=== PATIENT | male | born 1960 | race Caucasian/White ===

== ENCOUNTER → 2017-08-27 12:30 | Outpatient (CLI) | payer OTHER, MEDICAID, SELFPAY ==
[2017-08-27 13:11] LABS: Hemoglobin 13.4 g/dL (13.5-17.5); Mean Corpuscular HGB Conc 35.3 % (30-36); Mean Corpuscular Hemoglobin 35.8 PG (26-34); Mean Corpuscular Volume 101.4 fL (80-100); Platelet Count 214 X10^3/uL (150-400); Red Blood Cell Count 3.75 X10^6/uL (4.5-5.9); Red Cell Distribution Width 14.1 % (11.6-14.8); White Blood Cell Count 6.5 X10^3/uL (4.5-11.0)
[2017-08-27 13:43] LABS: Alanine Aminotransferase 111 IU/L (21-72); Albumin 4.5 g/dL (3.5-5.0); Albumin Globulin Ratio 1.2 (1.0-2.8); Alkaline Phosphatase 86 U/L (38-126); Aspartate Aminotransferase 159 IU/L (17-59); BUN Creatinine Ratio 11.4 (6-22); Bilirubin Total 0.8 mg/dL (0.2-1.3); Calcium 8.9 mg/dL (8.4-10.2); Cholesterol 265 mg/dL (140-199); Estimated Glomerular Filt Rate > 60.0 mL/min (>60); Globulin 3.7 g/dL (1.7-4.1); Glucose 90 mg/dL (70-100); HDL Cholesterol 84 mg/dL (40-60); HEMOLYSIS < 15 (0-50); LDL Cholesterol Calculated 150 mg/dL (<100); Potassium 3.8 mmol/L (3.4-5.1); Sodium 147 mmol/L (137-145); Total Protein 8.2 g/dL (6.3-8.2); Triglycerides 156 mg/dL (35-150)
[2017-08-27 14:10] LABS: Prostate Specific Antigen Scrn 0.847 ng/mL (0.1-4.0)
== END ==
PROVIDERS: PCP Internal Medicine; Visit Provider Internal Medicine
DX: I10 Essential (primary) hypertension (principal); E78.5 Hyperlipidemia, unspecified; Z00.00 Encounter for general adult medical examination without abnormal findings
CPT/HCPCS: 36415; 80053; 80061; 85027; G0103

== ENCOUNTER → 2017-08-30 10:27 | Outpatient (CLI) | payer OTHER, MEDICAID, SELFPAY ==
[2017-08-30 11:25] LABS: Reticulocyte Count, Percent 1.1 % (0.87-2.60)
[2017-08-30 12:08] LABS: Iron 55 ug/dL (49-181)
[2017-08-30 12:26] LABS: Total Iron Binding Capacity 340 ug/mL (261-462)
[2017-08-30 13:14] LABS: Vitamin B12 345 pg/mL (239-931)
[2017-08-30 13:15] LABS: Folate > 20.0 ng/mL (2.76-20.0)
[2017-08-30 19:02] LABS: Hep C Virus Ab w/Reflex Quant NEGATIVE s/c (NEGATIVE); Hepatitis B Surface Antigen NEGATIVE s/c (NEGATIVE)
[2017-09-08 11:24] LABS: Hepatitis B Core Antibody Nonreactive (Nonreactive)
== END ==
PROVIDERS: PCP Internal Medicine; Visit Provider Internal Medicine
DX: F10.20 Alcohol dependence, uncomplicated (principal); D64.9 Anemia, unspecified; K29.70 Gastritis, unspecified, without bleeding
CPT/HCPCS: 36415; 82607; 82728; 82746; 83540; 83550; 85045; 86704; 86803; 87340

== ENCOUNTER → 2017-09-28 10:45 | Outpatient (CLI) | payer OTHER, MEDICAID, SELFPAY ==
[2017-09-28 12:05] LABS: Alanine Aminotransferase 92 IU/L (21-72); Albumin 4.4 g/dL (3.5-5.0); Albumin Globulin Ratio 1.2 (1.0-2.8); Alkaline Phosphatase 68 U/L (38-126); Aspartate Aminotransferase 86 IU/L (17-59); BUN Creatinine Ratio 12.9 (6-22); Bilirubin Total 0.9 mg/dL (0.2-1.3); Blood Urea Nitrogen 9 mg/dL (9-20); Calcium 9.6 mg/dL (8.4-10.2); Carbon Dioxide 29 mmol/L (22-32); Chloride 101 mmol/L (98-107); Estimated Glomerular Filt Rate > 60.0 mL/min (>60); Globulin 3.7 g/dL (1.7-4.1); Glucose 103 mg/dL (70-100); HEMOLYSIS < 15 (0-50); Potassium 4.1 mmol/L (3.4-5.1); Sodium 142 mmol/L (137-145); Total Protein 8.1 g/dL (6.3-8.2)
== END ==
PROVIDERS: PCP Internal Medicine; Visit Provider Internal Medicine
DX: K29.70 Gastritis, unspecified, without bleeding (principal); R74.0 Nonspecific elevation of levels of transaminase and lactic acid dehydrogenase [LDH]
CPT/HCPCS: 36415; 80053

== ENCOUNTER → 2018-12-22 14:08 | Outpatient (CLI) | payer OTHER, MEDICAID, SELFPAY ==
[2018-12-22 14:51] LABS: Add Manual Diff / Slide Review NO; Basophils Absolute Auto 100 /uL (0-100); Basophils Percent Auto 1.3 % (0-2); Eosinophils Absolute Auto 100 /uL (0-450); Eosinophils Percent Auto 2.4 % (2-4); Hematocrit 41.3 % (41-53); Hemoglobin 14.3 g/dL (13.5-17.5); Lymphocytes Absolute Auto 1700 /uL (1100-4500); Mean Corpuscular HGB Conc 34.6 % (30-36); Mean Corpuscular Hemoglobin 34.5 PG (26-34); Mean Corpuscular Volume 99.7 fL (80-100); Monocytes Absolute Auto 700 /uL (0-900); Monocytes Percent Auto 12.5 % (3-14); Neutrophils Absolute Auto 2700 /uL (1500-7000); Neutrophils Percent Auto 51.8 % (50-75); Platelet Count 183 X10^3/uL (150-400); Red Blood Cell Count 4.14 X10^6/uL (4.5-5.9); Red Cell Distribution Width 13.7 % (11.6-14.8); White Blood Cell Count 5.3 X10^3/uL (4.5-11.0)
[2018-12-22 14:53] LABS: Reticulocyte Count, Percent 1.5 % (0.87-2.60)
[2018-12-22 15:49] LABS: Alanine Aminotransferase 99 IU/L (21-72); Albumin 4.8 g/dL (3.5-5.0); Albumin Globulin Ratio 1.3 (1.0-2.8); Alkaline Phosphatase 71 U/L (38-126); Aspartate Aminotransferase 144 IU/L (17-59); BUN Creatinine Ratio 18.6 (6-22); Bilirubin Total 0.9 mg/dL (0.2-1.3); Blood Urea Nitrogen 13 mg/dL (9-20); C-Reactive Protein Quant 0.5 mg/dL (<1.0); Calcium 10.4 mg/dL (8.4-10.2); Carbon Dioxide 28 mmol/L (22-32); Chloride 100 mmol/L (98-107); Cholesterol 279 mg/dL (140-199); Estimated Glomerular Filt Rate > 60.0 mL/min (>60); Globulin 3.6 g/dL (1.7-4.1); Glucose 103 mg/dL (70-100); HDL Cholesterol 68 mg/dL (40-60); HEMOLYSIS < 15 (0-50); LDL Cholesterol Calculated 180 mg/dL (<100); Lipase 104 U/L (23-300); Potassium 4.1 mmol/L (3.4-5.1); Sodium 142 mmol/L (137-145); Total Protein 8.4 g/dL (6.3-8.2); Triglycerides 154 mg/dL (35-150)
[2018-12-22 15:51] LABS: HEMOLYSIS < 15 (0-50); Iron 140 ug/dL (49-181)
[2018-12-22 16:01] LABS: Percent Iron Saturation 39 % (20-50); Total Iron Binding Capacity 360 ug/dL (261-462); Transferrin 315 mg/dL (206-381)
[2018-12-22 16:13] LABS: Vitamin D 25 Hydroxy (D3) 67.4 ng/mL (30.0-100.0)
[2018-12-22 16:50] LABS: Folate > 20.0 ng/mL (2.76-20.0)
[2018-12-27 19:09] LABS: Methylmalonic Acid 208 nmol/L (87-318)
== END ==
PROVIDERS: PCP Student in an Organized Health Care Education/Training Program; Visit Provider Student in an Organized Health Care Education/Training Program
DX: D64.9 Anemia, unspecified (principal); E55.9 Vitamin D deficiency, unspecified; E78.00 Pure hypercholesterolemia, unspecified; F10.20 Alcohol dependence, uncomplicated; R94.5 Abnormal results of liver function studies; G62.9 Polyneuropathy, unspecified
CPT/HCPCS: 36415; 80053; 80061; 82306; 82746; 83540; 83550; 83690; 83921; 85025; 85045; 86140

== ENCOUNTER → 2019-04-25 12:40 | Outpatient (CLI) | payer OTHER, MEDICAID, SELFPAY ==
[2019-04-25 14:29] LABS: Alanine Aminotransferase 30 IU/L (<50); Albumin 4.8 g/dL (3.5-5.0); Albumin Globulin Ratio 1.4 (1.0-2.8); Alkaline Phosphatase 52 U/L (38-126); Aspartate Aminotransferase 42 IU/L (17-59); Bilirubin Total 0.6 mg/dL (0.2-1.3); Bilirubin Unconjugated 0.5 mg/dL (0.0-1.1); Cholesterol 214 mg/dL (140-199); Globulin 3.5 g/dL (1.7-4.1); HDL Cholesterol 43 mg/dL (40-60); HEMOLYSIS < 15 (0-50); LDL Cholesterol Calculated 146 mg/dL (<100); Total Protein 8.3 g/dL (6.3-8.2); Triglycerides 127 mg/dL (35-150)
== END ==
PROVIDERS: PCP Student in an Organized Health Care Education/Training Program; Visit Provider Student in an Organized Health Care Education/Training Program
DX: E78.00 Pure hypercholesterolemia, unspecified (principal); K70.10 Alcoholic hepatitis without ascites
CPT/HCPCS: 36415; 80061; 80076

== ENCOUNTER 2019-06-08 15:00 | Outpatient (RCR) | payer OTHER, MEDICAID, SELFPAY ==
--- NOTE | 2019-05-11 17:00 | PT.OIE ---
Current Diagnoses Pain in right shoulder (05/11/19) Pain in right hip (05/11/19) Pain in left hip (05/11/19) Past Surgical History (Last Updated 09/10/17 @ 12:41 by Shawna Moore) Arm injury (Resolved 1981) History of vasectomy (Resolved 2007) Visit Care Team Role Provider Type Vipin Pappas MD Attending Provider Physician Primary Care Provider Specialty: Internal Medicine Address: [address] [place] [address], [address], [facility] Email: 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 PT-OP-B Current Condition Start: 05/09/19 18:53 Freq: Status: Active Protocol: Document 05/11/19 11:23 LRN (Rec: 05/11/19 12:27 LRN [id number]) Current Condition History of Current Condition Onset Date 2 months ago antonella shoulder pain Current Complaints Sharp shooting pain in the shoulders, R worse than L. History of Current Condition Pt complains of R> L shoulder pain & Antonella hip pain. He states the shoulder pains started at same time but has escalated on R the side (pt is R handed). He states the onset of shoulder pain is based on usage. He gets sharp pain when starting to reach for things, when rolling on it at nighttime and interrupting sleep. The pt is at the top and around the shoulders but is starting to move down the R shoulder and up the neck. He thinks his hips are fine. He is being referred to therapy because he has discomfort trying to get out of bed with the soreness in the front of the thighs. Prior Treatments and Tests He has used Aspirin & Advil that has helped with his full body aches. Blood tests No X-rays done. 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 Treatment Goals Patient/Caregiver Goals Pt goal is to be painfree in the shoulders. MD concerned hips hurt and can 't lift hips; therefore goal is to decrease hip pain when lifting the legs to get out of bed, and upon standing. Decrease knee and ankle stress when transferring sit > stand . Prior Functional Status Baseline Function- ADL's Independent Baseline Function- Mobility Independent Current Functional Impairments (Reported) Functional Limitations- ADL's Picking up a pitcher out of fridge with R arm. Reaching up to top shelf of cupboards or bending over to continuous pickling line pickler objects off the floor. Functional Limitations- Mobility/Gait Bilateral hip pain swinging legs off bed. Bilateral hip pain with sit <- > stand. Stress at ankles and knees with sit <-> stand. Personal Factors Other Personal Factors That May Effect Controlled High Blood Pressure Therapy/Recovery . Surgery of hands, Dupytrens correction of little finger. PT-OP-C Subjective Start: 05/09/19 18:53 Freq: Status: Active Protocol: Document 05/11/19 11:23 LRN (Rec: 05/11/19 12:27 LRN [id number]) Patient Questionnaires Lower Extremity Functional Scale LEFS Score 32 LEFS Impairment 40 to 59% Impaired (Score 32- 47) Upper Extremity Functional Scale UEFS Score 0 OP-PT Pain Assessment Pain Assessment Grid Paper Pain Assessment Grid Completed Yes Location L shoulder Pain Location Details Generally around L Shoulder joint Intensity 5 Scale Used Numeric (1 - 10) Description Aching,Sharp,Shooting Frequency Intermittent Pain Aggravating Factors Position,Activity,Lifting Other Pain Aggravating Factors Reaching, Position: Lying on shoulder. Pain Alleviating Factors Medication R shoulder Pain Location Details R shoulder Intensity 5 Scale Used Numeric (1 - 10) Description Aching,Sharp,Shooting,Stabbing Frequency Intermittent Radiating Location Down the lateral side of brachium and up to the neck. Pain Aggravating Factors Position,Activity,Lifting Other Pain Aggravating Factors Reaching, Position: Lying on shoulder. PT-OP-E Functional Tests Start: 05/09/19 18:53 Freq: Status: Active Protocol: Document 05/11/19 11:23 LRN (Rec: 01/30/20 14:02 LRN [id number]) Functional Tests Apley's Scratch Test Action 2- Left T1 Action 2- Right C7 Action 3- Left T12 Action 3- Right L3 PT-OP-G Mobility & Gait Start: 05/09/19 18:53 Freq: Status: Active Protocol: Document 05/11/19 11:23 LRN (Rec: 05/11/19 14:02 LRN [id number]) OP Mobility Evaluation Bed Mobility Rolling WNL Supine to and from Sit WNL Transfers Sit to Stand WNL Bed to Chair Transfers WNL PT-OP-H Neuro Start: 05/09/19 18:53 Freq: Status: Active Protocol: Document 05/11/19 11:23 LRN (Rec: 05/11/19 14:02 LRN [id number]) Sensation Evaluation Gross Sensation Gross Sensation WNL Comments Summary Comments Pt notes occasional decreased sensation in the R lateral deltoid and sharp shooting pain centered in the shoulder radiating up to the neck and down the lateral upper R arm. Deep Tendon Reflex & Clonus Assessment Deep Tendon Reflex Bilateral Brachioradialis Deep Tendon Reflex 1+ Diminished Bilateral Bicep Deep Tendon Reflex 0 Absent PT-OP-J Posture/Palpation/Skin Start: 05/09/19 18:53 Freq: Status: Active Protocol: Document 05/11/19 11:23 LRN (Rec: 05/11/19 14:02 LRN [id number]) Posture Evaluation Position Standing Evaluation View All positions L-Spine Posture Increased Lordosis Comments Posture Comments Varus of lower legs bilaterally. Palpation Assessment Location L shoulder Palpation Location Generally around L GHJ. Palpation Findings Tenderness Palpation Details General mild tenderness around the L shoulder joint. No tenderness of Supraspinatus or UT. R shoulder Palpation Location Biceps tendon, coracoid process Palpation Findings Tenderness Palpation Details Mild to moderate tenderness. General mild discomfort of Deltoid. No tenderness of Supraspinatus or UT. R acromion Palpation Location Anterior R Acromion Palpation Findings Tenderness Palpation Details Extremely tender at tip of anterior R acromion. PT-OP-K Range of Motion Start: 05/09/19 18:53 Freq: Status: Active Protocol: Document 05/11/19 11:23 LRN (Rec: 05/11/19 14:02 LRN [id number]) Cervical Spine Range of Motion Cervical Spine Active Degrees Testing Position Sitting Extension 38 Rotation Left 65 Rotation Right 60 Lateral Flexion Left 20 Lateral Flexion Right 35 ROM Limitations Soft Tissue Tightness Comments Flex is WNL. Shoulder Goniometric Range of Motion Shoulder Right Active Testing Position Supine Flexion 140 Abduction 83 Left Active Testing Position Supine Flexion 148 Abduction 90 Hip Goniometric Range of Motion Hip Right Passive Testing Position Supine Flexion w/Knee Flexed 90 Straight Leg Raise 70 Abduction 35 Internal Rotation 20 External Rotation 30 Left Passive Testing Position Supine Flexion w/Knee Flexed 100 Straight Leg Raise 75 Abduction 40 Internal Rotation 20 External Rotation 30 PT-OP-L Special Tests Start: 05/11/19 14:03 Freq: Status: Active Protocol: Document 05/11/19 11:23 LRN (Rec: 05/11/19 14:06 LRN [id number]) Special Tests Cervical Spine Special Tests Traction Test Results Negative bilaterally Foraminal Compression Test Results Negative bilaterally Shoulder Special Tests IR/Horizontal ADD Impingement Test Results Positive bilaterallly Empty Can Test Results Negative bilaterally Elevation Impingement Test Results Positive bilaterally Hip Special Tests Stinchfield Resisted Hip Flexion Test Results Positive bilaterally Scour Test Test Results Negative bilaterally PT-OP-M Strength Start: 05/09/19 18:53 Freq: Status: Active Protocol: Document 05/11/19 11:23 LRN (Rec: 05/11/19 14:02 LRN [id number]) Cervical Spine Strength Cervical Spine Manual Muscle Testing Comments WNL Shoulder Strength Shoulder Manual Muscle Testing Right Flexion 3- Fair- Extension 5 Normal Abduction (C5) 2+ Poor+ External Rotation 3- Fair- Internal Rotation 5 Normal Left Flexion 5 Normal Extension 5 Normal Abduction (C5) 3 Fair External Rotation 5 Normal Internal Rotation 5 Normal Elbow/Forearm Strength Elbow and Forearm Manual Muscle Testing Right Comments Generally 5/5 Left Comments Generally 5/5 PT-OP-T Assessment and Plan Start: 05/09/19 18:53 Freq: Status: Active Protocol: Document 05/11/19 11:23 LRN (Rec: 05/11/19 12:27 LRN [id number]) Physical Therapy Assessment Rehab Potential Rehabilitation Potential Good Evaluation Complexity Number of Personal Factors/Comorbidities 0 Number of Body Systems Impaired 4 or More Clinical Presentation at Evaluation Evolving Impairments Impairments Activity Tolerance,Functional Activities,Pain,ROM,Soft Tissue Mobility,Strength, Transfers Goals Three Impairment Bilateral anterior hip pain rated 4/10 Short Term Goal (STG) Decrease complaints of stress to the hips with sit <-> stand . STG Duration 06/12/19 Nursing Home Goal (LTG) Decrease hip pain when lifting the legs to get out of bed and upon standing to 0-1/10. LTG Duration 07/10/19 Two Impairment Bilateral shoulder pain rated 5/10, limiting function. Short Term Goal (STG) Improve painfree bilateral shoulder AROM per Apley Scratch Test. STG Duration 06/12/19 Tooth Polisher Goal (LTG) Pt will be able to reach overhead to top cupboards without pain. LTG Duration 07/10/19 One Impairment Lacks appropriate Shoulder and Hip self care HEP Nursing Home Goal (LTG) Pt will be independent in a self are shoulder and hip HEP. LTG Duration 07/10/19 Assessment Summary Assessment Pt presents with soft tissue pain at the R anterior Acromion and possible bicep tendonitis. He shows positive signs of impingement syndrome indicating involvement of the rotator cuff muscles bilaterally. He has increased muscle tone and general muscle pain around the R shoulder, neck, and scapular stabilizers and generally around the L shoulder. He doesn't appear to have cervical involvement at this time. The pt will benefit from skilled physical therapy to decrease pain with use of modalities and ROM exercises and to improve bilateral shoulder, hip mobility and strength. The pt is limited in his insurance therapy visit ; therefore we will start 2x/ week and decrease 1x/week once his pain is down and he is on a HEP of stretches. Physical Therapy Plan Frequency and Duration Frequency of Treatment 2x/Week Plan of Care Start Date 05/11/19 Plan of Care End Date 07/10/19 Therapeutic Interventions Therapeutic Interventions Aquatic Therapy,Home Exercise Program,Joint Mobilizations, Manual Therapy,Neuromuscular Re-education,Patient/Caregiver Education,Self-Care/Home Management,Soft Tissue Mobilization,Taping, Therapeutic Exercises Modalities Cold Pack/Ice Massage,Electric Stimulation,Hot Packs, Iontophoresis,Ultrasound Other Therapeutic Interventions Iontophoresis with 4mg/mL of dexamethasone with sodium phosphate. Next Visit Focus/Plan Next Note Type Treatment Note Next Visit Plan Recheck Biceps DTR & assess Triceps DTR & V.A. Start with Ultrasound to the R anterior shoulder and around the Anterior Acromion, biceps tendon & coracoid process. Start ROM stretches with I/S for HEP and end with MH/EStim > posterior scap & anterior shoulder,bilaterally.
--- NOTE | 2019-05-11 17:00 | PT.OPPOC ---
Physical, Occupational & Speech Therapy At [facility] Current Diagnoses Pain in right shoulder (05/11/19) Pain in right hip (05/11/19) Pain in left hip (05/11/19) Visit Care Team Role Provider Type Vipin Pappas MD Attending Provider Physician Primary Care Provider Specialty: Internal Medicine Address: [address] [place] [address], [address], [facility] Email: [email or web address] Plan Of Care PT-OP-T Assessment and Plan Start: 05/09/19 18:53 Freq: Status: Active Protocol: Document 05/11/19 11:23 LRN (Rec: 05/11/19 12:27 LRN [id number]) Physical Therapy Assessment Rehab Potential Rehabilitation Potential Good Evaluation Complexity Number of Personal Factors/Comorbidities 0 Number of Body Systems Impaired 4 or More Clinical Presentation at Evaluation Evolving Impairments Impairments Activity Tolerance,Functional Activities,Pain,ROM,Soft Tissue Mobility,Strength, Transfers Goals Three Impairment Bilateral anterior hip pain rated 4/10 Short Term Goal (STG) Decrease complaints of stress to the hips with sit <-> stand . STG Duration 06/12/19 Sports Equipment Racker Goal (LTG) Decrease hip pain when lifting the legs to get out of bed and upon standing to 0-1/10. LTG Duration 07/10/19 Two Impairment Bilateral shoulder pain rated 5/10, limiting function. Short Term Goal (STG) Improve painfree bilateral shoulder AROM per Apley Scratch Test. STG Duration 06/12/19 Sports Equipment Racker Goal (LTG) Pt will be able to reach overhead to top cupboards without pain. LTG Duration 07/10/19 One Impairment Lacks appropriate Shoulder and Hip self care HEP Retirement Goal (LTG) Pt will be independent in a self are shoulder and hip HEP. LTG Duration 07/10/19 Assessment Summary Assessment Pt presents with soft tissue pain at the R anterior Acromion and possible bicep tendonitis. He shows positive signs of impingement syndrome indicating involvement of the rotator cuff muscles bilaterally. He has increased muscle tone and general muscle pain around the R shoulder, neck, and scapular stabilizers and generally around the L shoulder. He doesn't appear to have cervical involvement at this time. The pt will benefit from skilled physical therapy to decrease pain with use of modalities and ROM exercises and to improve bilateral shoulder, hip mobility and strength. The pt is limited in his insurance therapy visit ; therefore we will start 2x/ week and decrease 1x/week once his pain is down and he is on a HEP of stretches. Physical Therapy Plan Frequency and Duration Frequency of Treatment 2x/Week Plan of Care Start Date 05/11/19 Plan of Care End Date 07/10/19 Therapeutic Interventions Therapeutic Interventions Aquatic Therapy,Home Exercise Program,Joint Mobilizations, Manual Therapy,Neuromuscular Re-education,Patient/Caregiver Education,Self-Care/Home Management,Soft Tissue Mobilization,Taping, Therapeutic Exercises Modalities Cold Pack/Ice Massage,Electric Stimulation,Hot Packs, Iontophoresis,Ultrasound Other Therapeutic Interventions Iontophoresis with 4mg/mL of dexamethasone with sodium phosphate. Next Visit Focus/Plan Next Note Type Treatment Note Next Visit Plan Recheck Biceps DTR & assess Triceps DTR & V.A. Start with Ultrasound to the R anterior shoulder and around the Anterior Acromion, biceps tendon & coracoid process. Start ROM stretches with I/S for HEP and end with MH/EStim > posterior scap & anterior shoulder,bilaterally. Plan of Care Dates Plan of Care Start Date 05/11/19 Plan of Care End Date 07/10/19 Electronically Signed by: Nikky Shelley, PT 05/11/19 1700 Please Sign and Return: I have reviewed this Plan of Care and certify that the skilled therapy services above are required to meet the patient?s needs. Physician Signature Date Printed Name and Credentials Clinical Instructor Signature Printed Name and Credentials
--- NOTE | 2019-05-18 16:34 | PT.OTN ---
Current Diagnoses Pain in right shoulder (05/18/19) Pain in right hip (05/18/19) Pain in left hip (05/18/19) Physical Therapy Treatment Note PT-OP-A Visit Information Start: 05/09/19 18:53 Freq: Status: Active Protocol: Document 05/18/19 15:09 LRN (Rec: 05/18/19 16:31 LRN [id number]) Out-Patient Physical Therapy Visit Information Visit Information Visit Type Treatment Note Visit Start Time 15:09 Visit Stop Time 15:55 Total Visit Minutes 46 Visit Number 2 Number of RACK WASHER Visits 0 Evaluation Information Evaluation Date 05/11/19 Precautions Precautions Controlled HBP Complaints of general body ache. PT-OP-B Current Condition Start: 05/09/19 18:53 Freq: Status: Active Protocol: Document 05/11/19 11:23 LRN (Rec: 05/11/19 12:27 LRN [id number]) Current Condition History of Current Condition Onset Date 2 months ago apolinar shoulder pain Current Complaints Sharp shooting pain in the shoulders, R worse than L. History of Current Condition Pt complains of R> L shoulder pain & Apolinar hip pain. He states the shoulder pains started at same time but has escalated on R the side (pt is R handed). He states the onset of shoulder pain is based on usage. He gets sharp pain when starting to reach for things, when rolling on it at nighttime and interrupting sleep. The pt is at the top and around the shoulders but is starting to move down the R shoulder and up the neck. He thinks his hips are fine. He is being referred to therapy because he has discomfort trying to get out of bed with the soreness in the front of the thighs. Prior Treatments and Tests He has used Aspirin & Advil that has helped with his full body aches. Blood tests No X-rays done. Future Testing and Treatments Planned Industrial Organizational Psychologist for ankle and feet assessment. 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 Treatment Goals Patient/Caregiver Goals Pt goal is to be painfree in the shoulders. MD concerned hips hurt and can 't lift hips; therefore goal is to decrease hip pain when lifting the legs to get out of bed, and upon standing. Decrease knee and ankle stress when transferring sit > stand . Prior Functional Status Baseline Function- ADL's Independent Baseline Function- Mobility Independent Current Functional Impairments (Reported) Functional Limitations- ADL's Picking up a pitcher out of fridge with R arm. Reaching up to top shelf of cupboards or bending over to pick pack worker objects off the floor. Functional Limitations- Mobility/Gait Bilateral hip pain swinging legs off bed. Bilateral hip pain with sit <- > stand. Stress at ankles and knees with sit <-> stand. Personal Factors Other Personal Factors That May Effect Controlled High Blood Pressure Therapy/Recovery . Surgery of hands, Dupytrens correction of little finger. PT-OP-C Subjective Start: 05/09/19 18:53 Freq: Status: Active Protocol: Document 05/18/19 15:09 LRN (Rec: 05/18/19 16:31 LRN [id number]) OP-PT Subjective Patient Comments Patient Comments States no change. Shoulder felt looser after therapy. PT-OP-E Functional Tests Start: 05/09/19 18:53 Freq: Status: Active Protocol: Document 05/11/19 11:23 LRN (Rec: 05/11/19 14:02 LRN [id number]) Functional Tests Apley's Scratch Test Action 2- Left T1 Action 2- Right C7 Action 3- Left T12 Action 3- Right L3 PT-OP-G Mobility & Gait Start: 05/09/19 18:53 Freq: Status: Active Protocol: Document 05/11/19 11:23 LRN (Rec: 05/11/19 14:02 LRN [id number]) OP Mobility Evaluation Bed Mobility Rolling WNL Supine to and from Sit WNL Transfers Sit to Stand WNL Bed to Chair Transfers WNL PT-OP-H Neuro Start: 05/09/19 18:53 Freq: Status: Active Protocol: Document 05/11/19 11:23 LRN (Rec: 05/11/19 14:02 LRN [id number]) Sensation Evaluation Gross Sensation Gross Sensation WNL Comments Summary Comments Pt notes occasional decreased sensation in the R lateral deltoid and sharp shooting pain centered in the shoulder radiating up to the neck and down the lateral upper R arm. Deep Tendon Reflex & Clonus Assessment Deep Tendon Reflex Bilateral Brachioradialis Deep Tendon Reflex 1+ Diminished Bilateral Bicep Deep Tendon Reflex 0 Absent PT-OP-J Posture/Palpation/Skin Start: 05/09/19 18:53 Freq: Status: Active Protocol: Document 05/11/19 11:23 LRN (Rec: 05/11/19 14:02 LRN [id number]) Posture Evaluation Position Standing Evaluation View All positions L-Spine Posture Increased Lordosis Comments Posture Comments Varus of lower legs bilaterally. Palpation Assessment Location L shoulder Palpation Location Generally around L GHJ. Palpation Findings Tenderness Palpation Details General mild tenderness around the L shoulder joint. No tenderness of Supraspinatus or UT. R shoulder Palpation Location Biceps tendon, coracoid process Palpation Findings Tenderness Palpation Details Mild to moderate tenderness. General mild discomfort of Deltoid. No tenderness of Supraspinatus or UT. R acromion Palpation Location Anterior R Acromion Palpation Findings Tenderness Palpation Details Extremely tender at tip of anterior R acromion. PT-OP-K Range of Motion Start: 05/09/19 18:53 Freq: Status: Active Protocol: Document 05/11/19 11:23 LRN (Rec: 05/11/19 14:02 LRN [id number]) Cervical Spine Range of Motion Cervical Spine Active Degrees Testing Position Sitting Extension 38 Rotation Left 65 Rotation Right 60 Lateral Flexion Left 20 Lateral Flexion Right 35 ROM Limitations Soft Tissue Tightness Comments Flex is WNL. Shoulder Goniometric Range of Motion Shoulder Right Active Testing Position Supine Flexion 140 Abduction 83 Left Active Testing Position Supine Flexion 148 Abduction 90 Hip Goniometric Range of Motion Hip Right Passive Testing Position Supine Flexion w/Knee Flexed 90 Straight Leg Raise 70 Abduction 35 Internal Rotation 20 External Rotation 30 Left Passive Testing Position Supine Flexion w/Knee Flexed 100 Straight Leg Raise 75 Abduction 40 Internal Rotation 20 External Rotation 30 PT-OP-L Special Tests Start: 05/11/19 14:03 Freq: Status: Active Protocol: Document 05/11/19 11:23 LRN (Rec: 05/11/19 14:06 LRN [id number]) Special Tests Cervical Spine Special Tests Traction Test Results Negative bilaterally Foraminal Compression Test Results Negative bilaterally Shoulder Special Tests IR/Horizontal ADD Impingement Test Results Positive bilaterallly Empty Can Test Results Negative bilaterally Elevation Impingement Test Results Positive bilaterally Hip Special Tests Stinchfield Resisted Hip Flexion Test Results Positive bilaterally Scour Test Test Results Negative bilaterally PT-OP-M Strength Start: 05/09/19 18:53 Freq: Status: Active Protocol: Document 05/11/19 11:23 LRN (Rec: 05/11/19 14:02 LRN [id number]) Cervical Spine Strength Cervical Spine Manual Muscle Testing Comments WNL Shoulder Strength Shoulder Manual Muscle Testing Right Flexion 3- Fair- Extension 5 Normal Abduction (C5) 2+ Poor+ External Rotation 3- Fair- Internal Rotation 5 Normal Left Flexion 5 Normal Extension 5 Normal Abduction (C5) 3 Fair External Rotation 5 Normal Internal Rotation 5 Normal Elbow/Forearm Strength Elbow and Forearm Manual Muscle Testing Right Comments Generally 5/5 Left Comments Generally 5/5 PT-OP-Q Treatments Start: 05/09/19 18:53 Freq: Status: Active Protocol: Document 05/18/19 15:09 LRN (Rec: 05/18/19 16:31 LRN [id number]) Therapeutic Exercises Supine Exercises Shoulder ER Supine Exercise Name Stretch: T-Bar shoulder ER Side right Reps/Minutes 7' Comments Extra time for achieving comfortable and proper stretch Shoulder IR Supine Exercise Name Stretch: IR Side right Reps/Minutes 7' Comments Extra time for achieving comfortable and proper positioning for stretch Shoulder flex Supine Exercise Name Stretch: T-Bar shoulder flex ( one arm overhead) Side right Reps/Minutes 6' Self-Care/Home Management Treatment Education Patient Education Home Exercise Program Activities Self-Care/Home Management Activities I/S pt to perform shoulder flex, ER, IR stretching. PT-OP-R Modalities Start: 05/09/19 18:53 Freq: Status: Active Protocol: Document 05/18/19 15:09 LRN (Rec: 05/18/19 16:31 LRN [id number]) Electric Stimulation Electric Stimulation Pre-Modulated Body Location Apolinar [UT > LB] Duration (Minutes) 10 Intensity L 18, R 17 Patient Position Hooklying Combined With Heat/Cold Hot Pack Comments Bolster under legs. Hot Pack/Cold Pack Treatment Hot Pack Location Back Patient Position Supine Treatment Duration (minutes) 10 Patient Tolerance Good Comments Bolster under legs Ultrasound Therapy Treatment R anterior shoulder Treatment Duration (minutes) 8 Patient Position Sitting Applicator Size (cm2) 10 Mode Setting Pulsed Duty Cycle 50% Intensity Setting (w/cm2) 1.0 Comments R anterior acromion border, Biceps tendon & Coracoid process. PT-OP-T Assessment and Plan Start: 05/09/19 18:53 Freq: Status: Active Protocol: Document 05/18/19 15:09 LRN (Rec: 05/18/19 16:31 LRN [id number]) Physical Therapy Assessment Goals Three Impairment Bilateral anterior hip pain rated 4/10 Short Term Goal (STG) Decrease complaints of stress to the hips with sit <-> stand . STG Duration 06/12/19 Kitchen And Counter Worker Goal (LTG) Decrease hip pain when lifting the legs to get out of bed and upon standing to 0-1/10. LTG Duration 07/10/19 Two Impairment Bilateral shoulder pain rated 5/10, limiting function. Short Term Goal (STG) Improve painfree bilateral shoulder AROM per Apley Scratch Test. STG Duration 06/12/19 Mcfp Goal (LTG) Pt will be able to reach overhead to top cupboards without pain. LTG Duration 07/10/19 One Impairment Lacks appropriate Shoulder and Hip self care HEP Mcfp Goal (LTG) Pt will be independent in a self are shoulder and hip HEP. LTG Duration 07/10/19 Assessment Summary Assessment Tendernessof R anterior Acromion, biceps tendon and coracoid process persists. + Impingement, but ROM is more tolerable. Muscle tension around the R shoulder/scapular stabilizers. With pt R shoulder in 90/90 positioning he had Pec Min/Kurtis ms tension. No DTR response of UE's bilaterally. Will assess VA next visit. Physical Therapy Plan Frequency and Duration Frequency of Treatment 2x/Week Plan of Care Start Date 05/11/19 Plan of Care End Date 07/10/19 Next Visit Focus/Plan Next Note Type Treatment Note Next Visit Plan Recheck V.A. Cont Ultrasound to the R anterior shoulder ( Anterior Acromion, biceps tendon & coracoid process), start R pec stretch, f/b R shoulder PROM (towel and sitting stretches) and end with trial of MH/EStim to posterior scap & anterior shoulder, bilaterally. Pt is limited in his insurance therapy visit; therefore start 2x/week and decrease 1x/week once his pain is down and he is on a HEP of stretches.
--- NOTE | 2019-05-22 16:37 | PT.OTN ---
Current Diagnoses Pain in right shoulder (05/22/19) Pain in right hip (05/22/19) Pain in left hip (05/22/19) Physical Therapy Treatment Note PT-OP-A Visit Information Start: 05/09/19 18:53 Freq: Status: Active Protocol: Document 05/22/19 15:10 LRN (Rec: 05/22/19 16:35 LRN [id number]) Out-Patient Physical Therapy Visit Information Visit Information Visit Type Treatment Note Visit Start Time 15:10 Visit Stop Time 16:12 Total Visit Minutes 62 Visit Number 3 Number of RESPIRATORY CARE PROGRAM DIRECTOR Visits 0 Evaluation Information Evaluation Date 05/11/19 Precautions Precautions Controlled HBP Complaints of general body ache. PT-OP-B Current Condition Start: 05/09/19 18:53 Freq: Status: Active Protocol: Document 05/11/19 11:23 LRN (Rec: 05/11/19 12:27 LRN [id number]) Current Condition History of Current Condition Onset Date 2 months ago apolinar shoulder pain Current Complaints Sharp shooting pain in the shoulders, R worse than L. History of Current Condition Pt complains of R> L shoulder pain & Apolinar hip pain. He states the shoulder pains started at same time but has escalated on R the side (pt is R handed). He states the onset of shoulder pain is based on usage. He gets sharp pain when starting to reach for things, when rolling on it at nighttime and interrupting sleep. The pt is at the top and around the shoulders but is starting to move down the R shoulder and up the neck. He thinks his hips are fine. He is being referred to therapy because he has discomfort trying to get out of bed with the soreness in the front of the thighs. Prior Treatments and Tests He has used Aspirin & Advil that has helped with his full body aches. Blood tests No X-rays done. Future Testing and Treatments Planned Qualitative Executive Researcher for ankle and feet assessment. 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 Treatment Goals Patient/Caregiver Goals Pt goal is to be painfree in the shoulders. MD concerned hips hurt and can 't lift hips; therefore goal is to decrease hip pain when lifting the legs to get out of bed, and upon standing. Decrease knee and ankle stress when transferring sit > stand . Prior Functional Status Baseline Function- ADL's Independent Baseline Function- Mobility Independent Current Functional Impairments (Reported) Functional Limitations- ADL's Picking up a pitcher out of fridge with R arm. Reaching up to top shelf of cupboards or bending over to citrus picker objects off the floor. Functional Limitations- Mobility/Gait Bilateral hip pain swinging legs off bed. Bilateral hip pain with sit <- > stand. Stress at ankles and knees with sit <-> stand. Personal Factors Other Personal Factors That May Effect Controlled High Blood Pressure Therapy/Recovery . Surgery of hands, Dupytrens correction of little finger. PT-OP-C Subjective Start: 05/09/19 18:53 Freq: Status: Active Protocol: Document 05/22/19 15:10 LRN (Rec: 05/22/19 16:35 LRN [id number]) OP-PT Subjective Patient Comments Patient Comments States his R shoulder is looser since E-Stim. States he still can't reach up, but the sharp pains are gone. PT-OP-E Functional Tests Start: 05/09/19 18:53 Freq: Status: Active Protocol: Document 05/11/19 11:23 LRN (Rec: 05/11/19 14:02 LRN [id number]) Functional Tests Apley's Scratch Test Action 2- Left T1 Action 2- Right C7 Action 3- Left T12 Action 3- Right L3 PT-OP-G Mobility & Gait Start: 05/09/19 18:53 Freq: Status: Active Protocol: Document 05/11/19 11:23 LRN (Rec: 05/11/19 14:02 LRN [id number]) OP Mobility Evaluation Bed Mobility Rolling WNL Supine to and from Sit WNL Transfers Sit to Stand WNL Bed to Chair Transfers WNL PT-OP-H Neuro Start: 05/09/19 18:53 Freq: Status: Active Protocol: Document 05/11/19 11:23 LRN (Rec: 05/11/19 14:02 LRN [id number]) Sensation Evaluation Gross Sensation Gross Sensation WNL Comments Summary Comments Pt notes occasional decreased sensation in the R lateral deltoid and sharp shooting pain centered in the shoulder radiating up to the neck and down the lateral upper R arm. Deep Tendon Reflex & Clonus Assessment Deep Tendon Reflex Bilateral Brachioradialis Deep Tendon Reflex 1+ Diminished Bilateral Bicep Deep Tendon Reflex 0 Absent PT-OP-J Posture/Palpation/Skin Start: 05/09/19 18:53 Freq: Status: Active Protocol: Document 05/11/19 11:23 LRN (Rec: 05/11/19 14:02 LRN [id number]) Posture Evaluation Position Standing Evaluation View All positions L-Spine Posture Increased Lordosis Comments Posture Comments Varus of lower legs bilaterally. Palpation Assessment Location L shoulder Palpation Location Generally around L GHJ. Palpation Findings Tenderness Palpation Details General mild tenderness around the L shoulder joint. No tenderness of Supraspinatus or UT. R shoulder Palpation Location Biceps tendon, coracoid process Palpation Findings Tenderness Palpation Details Mild to moderate tenderness. General mild discomfort of Deltoid. No tenderness of Supraspinatus or UT. R acromion Palpation Location Anterior R Acromion Palpation Findings Tenderness Palpation Details Extremely tender at tip of anterior R acromion. PT-OP-K Range of Motion Start: 05/09/19 18:53 Freq: Status: Active Protocol: Document 05/11/19 11:23 LRN (Rec: 05/11/19 14:02 LRN [id number]) Cervical Spine Range of Motion Cervical Spine Active Degrees Testing Position Sitting Extension 38 Rotation Left 65 Rotation Right 60 Lateral Flexion Left 20 Lateral Flexion Right 35 ROM Limitations Soft Tissue Tightness Comments Flex is WNL. Shoulder Goniometric Range of Motion Shoulder Right Active Testing Position Supine Flexion 140 Abduction 83 Left Active Testing Position Supine Flexion 148 Abduction 90 Hip Goniometric Range of Motion Hip Right Passive Testing Position Supine Flexion w/Knee Flexed 90 Straight Leg Raise 70 Abduction 35 Internal Rotation 20 External Rotation 30 Left Passive Testing Position Supine Flexion w/Knee Flexed 100 Straight Leg Raise 75 Abduction 40 Internal Rotation 20 External Rotation 30 PT-OP-L Special Tests Start: 05/11/19 14:03 Freq: Status: Active Protocol: Document 05/22/19 15:10 LRN (Rec: 05/22/19 16:35 LRN [id number]) Special Tests Cervical Spine Special Tests Vertebral Artery Test Results Negative bilaterally Comments Cervical ext limited due to numbness of UE opposite artery being tested. Traction Test Results Positive Comments Relief of R shoulder pain with traction during chest press movement. PT-OP-M Strength Start: 05/09/19 18:53 Freq: Status: Active Protocol: Document 05/11/19 11:23 LRN (Rec: 05/11/19 14:02 LRN [id number]) Cervical Spine Strength Cervical Spine Manual Muscle Testing Comments WNL Shoulder Strength Shoulder Manual Muscle Testing Right Flexion 3- Fair- Extension 5 Normal Abduction (C5) 2+ Poor+ External Rotation 3- Fair- Internal Rotation 5 Normal Left Flexion 5 Normal Extension 5 Normal Abduction (C5) 3 Fair External Rotation 5 Normal Internal Rotation 5 Normal Elbow/Forearm Strength Elbow and Forearm Manual Muscle Testing Right Comments Generally 5/5 Left Comments Generally 5/5 PT-OP-Q Treatments Start: 05/09/19 18:53 Freq: Status: Active Protocol: Document 05/22/19 15:10 LRN (Rec: 05/22/19 16:35 LRN [id number]) Therapeutic Exercises Supine Exercises Chest Press Supine Exercise Name Chest Press Reps/Minutes 30x Shoulder ER Supine Exercise Name Stretch: T-Bar shoulder ER Side right Reps/Minutes 7' Comments Extra time for achieving comfortable and proper stretch Shoulder IR Supine Exercise Name Stretch: IR Side right Reps/Minutes 4' Comments Extra time for achieving comfortable and proper positioning for stretch Shoulder flex Supine Exercise Name Stretch: T-Bar shoulder flex ( one arm overhead) Side right Reps/Minutes 7' Manual Therapy Treatment Manual Traction Cervical Details Manual C tx during chest press ex Body Position Supine Reps/Duration 5' PT-OP-R Modalities Start: 05/09/19 18:53 Freq: Status: Active Protocol: Document 05/22/19 15:10 LRN (Rec: 05/22/19 16:35 LRN [id number]) Electric Stimulation Electric Stimulation Pre-Modulated Body Location R UT > lateral Deltoid; R upper Rhomboid > Lower Rhomboid Duration (Minutes) 15 Patient Position Hooklying Combined With Heat/Cold Hot Pack Comments Bolster under legs. Hot Pack/Cold Pack Treatment Hot Pack Location Back Patient Position Supine Treatment Duration (minutes) 15 Patient Tolerance Good Comments Bolster under legs Ultrasound Therapy Treatment R anterior shoulder Treatment Duration (minutes) 8 Patient Position Sitting Applicator Size (cm2) 10 Mode Setting Pulsed Duty Cycle 50% Intensity Setting (w/cm2) 1.0 Comments Around R sternoclavicular jt, at Biceps tendon & around Coracoid process. PT-OP-T Assessment and Plan Start: 01/28/20 18:53 Freq: Status: Active Protocol: Document 05/22/19 15:10 LRN (Rec: 05/22/19 16:35 LRN [id number]) Physical Therapy Assessment Goals Three Impairment Bilateral anterior hip pain rated 4/10 Short Term Goal (STG) Decrease complaints of stress to the hips with sit <-> stand . STG Duration 06/12/19 Intermediate Goal (LTG) Decrease hip pain when lifting the legs to get out of bed and upon standing to 0-1/10. LTG Duration 07/10/19 Two Impairment Bilateral shoulder pain rated 5/10, limiting function. Short Term Goal (STG) Improve painfree bilateral shoulder AROM per Apley Scratch Test. STG Duration 06/12/19 Intermediate Goal (LTG) Pt will be able to reach overhead to top cupboards without pain. LTG Duration 07/10/19 One Impairment Lacks appropriate Shoulder and Hip self care HEP Intermediate Goal (LTG) Pt will be independent in a self are shoulder and hip HEP. LTG Duration 07/10/19 Assessment Summary Assessment Pt demonstrated + cervical distraction test, indicating possible cervical neurological involvement. - VA Test bilaterally, but pt did have numbness of hands on side opposite of testing side, indicating possible cervical mechanical dysfunction. Physical Therapy Plan Frequency and Duration Frequency of Treatment 2x/Week Plan of Care Start Date 05/11/19 Plan of Care End Date 07/10/19 Next Visit Focus/Plan Next Note Type Treatment Note Next Visit Plan Start gentle ex warm up ( Biodex or UBE with low arm placement), f/b pec stretch, postural (neck) and RC strengthening, end cervical traction or MH/IFES to neck, bilaterally. Ultrasound to the R anterior shoulder if needed during traction( Anterior Acromion, biceps tendon & coracoid process). Pt is limited in his insurance therapy visit; therefore start 2x/week and decrease 1x/ week once his pain is down and he is on a HEP of stretches.
--- NOTE | 2019-05-25 16:02 | PT.OTN ---
Current Diagnoses Pain in right shoulder (05/25/19) Pain in right hip (05/25/19) Pain in left hip (05/25/19) Physical Therapy Treatment Note PT-OP-A Visit Information Start: 05/09/19 18:53 Freq: Status: Active Protocol: Document 05/25/19 15:05 LRN (Rec: 05/25/19 16:01 LRN [id number]) Out-Patient Physical Therapy Visit Information Visit Information Visit Type Treatment Note Visit Start Time 15:05 Visit Stop Time 15:49 Total Visit Minutes 44 Visit Number 4 Number of LINE ASSEMBLER Visits 0 Evaluation Information Evaluation Date 05/11/19 Precautions Precautions Controlled HBP Complaints of general body ache. PT-OP-B Current Condition Start: 05/09/19 18:53 Freq: Status: Active Protocol: Document 05/11/19 11:23 LRN (Rec: 05/11/19 12:27 LRN [id number]) Current Condition History of Current Condition Onset Date 2 months ago apolinar shoulder pain Current Complaints Sharp shooting pain in the shoulders, R worse than L. History of Current Condition Pt complains of R> L shoulder pain & Apolinar hip pain. He states the shoulder pains started at same time but has escalated on R the side (pt is R handed). He states the onset of shoulder pain is based on usage. He gets sharp pain when starting to reach for things, when rolling on it at nighttime and interrupting sleep. The pt is at the top and around the shoulders but is starting to move down the R shoulder and up the neck. He thinks his hips are fine. He is being referred to therapy because he has discomfort trying to get out of bed with the soreness in the front of the thighs. Prior Treatments and Tests He has used Aspirin & Advil that has helped with his full body aches. Blood tests No X-rays done. Future Testing and Treatments Planned Hand Tile Maker for ankle and feet assessment. 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 Treatment Goals Patient/Caregiver Goals Pt goal is to be painfree in the shoulders. MD concerned hips hurt and can 't lift hips; therefore goal is to decrease hip pain when lifting the legs to get out of bed, and upon standing. Decrease knee and ankle stress when transferring sit > stand . Prior Functional Status Baseline Function- ADL's Independent Baseline Function- Mobility Independent Current Functional Impairments (Reported) Functional Limitations- ADL's Picking up a pitcher out of fridge with R arm. Reaching up to top shelf of cupboards or bending over to cloth picker objects off the floor. Functional Limitations- Mobility/Gait Bilateral hip pain swinging legs off bed. Bilateral hip pain with sit <- > stand. Stress at ankles and knees with sit <-> stand. Personal Factors Other Personal Factors That May Effect Controlled High Blood Pressure Therapy/Recovery . Surgery of hands, Dupytrens correction of little finger. PT-OP-C Subjective Start: 05/09/19 18:53 Freq: Status: Active Protocol: Document 05/25/19 15:05 LRN (Rec: 05/25/19 16:01 LRN [id number]) OP-PT Subjective Patient Comments Patient Comments No change. States he saw a stucco worker and was told he couldn't help him with foot pain and referred him to a neurologist. PT-OP-E Functional Tests Start: 05/09/19 18:53 Freq: Status: Active Protocol: Document 05/11/19 11:23 LRN (Rec: 05/11/19 14:02 LRN [id number]) Functional Tests Apley's Scratch Test Action 2- Left T1 Action 2- Right C7 Action 3- Left T12 Action 3- Right L3 PT-OP-G Mobility & Gait Start: 05/09/19 18:53 Freq: Status: Active Protocol: Document 05/11/19 11:23 LRN (Rec: 05/11/19 14:02 LRN [id number]) OP Mobility Evaluation Bed Mobility Rolling WNL Supine to and from Sit WNL Transfers Sit to Stand WNL Bed to Chair Transfers WNL PT-OP-H Neuro Start: 05/09/19 18:53 Freq: Status: Active Protocol: Document 05/11/19 11:23 LRN (Rec: 05/11/19 14:02 LRN [id number]) Sensation Evaluation Gross Sensation Gross Sensation WNL Comments Summary Comments Pt notes occasional decreased sensation in the R lateral deltoid and sharp shooting pain centered in the shoulder radiating up to the neck and down the lateral upper R arm. Deep Tendon Reflex & Clonus Assessment Deep Tendon Reflex Bilateral Brachioradialis Deep Tendon Reflex 1+ Diminished Bilateral Bicep Deep Tendon Reflex 0 Absent PT-OP-J Posture/Palpation/Skin Start: 05/09/19 18:53 Freq: Status: Active Protocol: Document 05/11/19 11:23 LRN (Rec: 05/11/19 14:02 LRN [id number]) Posture Evaluation Position Standing Evaluation View All positions L-Spine Posture Increased Lordosis Comments Posture Comments Varus of lower legs bilaterally. Palpation Assessment Location L shoulder Palpation Location Generally around L GHJ. Palpation Findings Tenderness Palpation Details General mild tenderness around the L shoulder joint. No tenderness of Supraspinatus or UT. R shoulder Palpation Location Biceps tendon, coracoid process Palpation Findings Tenderness Palpation Details Mild to moderate tenderness. General mild discomfort of Deltoid. No tenderness of Supraspinatus or UT. R acromion Palpation Location Anterior R Acromion Palpation Findings Tenderness Palpation Details Extremely tender at tip of anterior R acromion. PT-OP-K Range of Motion Start: 05/09/19 18:53 Freq: Status: Active Protocol: Document 05/11/19 11:23 LRN (Rec: 05/11/19 14:02 LRN [id number]) Cervical Spine Range of Motion Cervical Spine Active Degrees Testing Position Sitting Extension 38 Rotation Left 65 Rotation Right 60 Lateral Flexion Left 20 Lateral Flexion Right 35 ROM Limitations Soft Tissue Tightness Comments Flex is WNL. Shoulder Goniometric Range of Motion Shoulder Right Active Testing Position Supine Flexion 140 Abduction 83 Left Active Testing Position Supine Flexion 148 Abduction 90 Hip Goniometric Range of Motion Hip Right Passive Testing Position Supine Flexion w/Knee Flexed 90 Straight Leg Raise 70 Abduction 35 Internal Rotation 20 External Rotation 30 Left Passive Testing Position Supine Flexion w/Knee Flexed 100 Straight Leg Raise 75 Abduction 40 Internal Rotation 20 External Rotation 30 PT-OP-L Special Tests Start: 05/11/19 14:03 Freq: Status: Active Protocol: Document 05/22/19 15:10 LRN (Rec: 05/22/19 16:35 LRN [id number]) Special Tests Cervical Spine Special Tests Vertebral Artery Test Results Negative bilaterally Comments Cervical ext limited due to numbness of UE opposite artery being tested. Traction Test Results Positive Comments Relief of R shoulder pain with traction during chest press movement. PT-OP-M Strength Start: 05/09/19 18:53 Freq: Status: Active Protocol: Document 05/11/19 11:23 LRN (Rec: 05/11/19 14:02 LRN [id number]) Cervical Spine Strength Cervical Spine Manual Muscle Testing Comments WNL Shoulder Strength Shoulder Manual Muscle Testing Right Flexion 3- Fair- Extension 5 Normal Abduction (C5) 2+ Poor+ External Rotation 3- Fair- Internal Rotation 5 Normal Left Flexion 5 Normal Extension 5 Normal Abduction (C5) 3 Fair External Rotation 5 Normal Internal Rotation 5 Normal Elbow/Forearm Strength Elbow and Forearm Manual Muscle Testing Right Comments Generally 5/5 Left Comments Generally 5/5 PT-OP-Q Treatments Start: 05/09/19 18:53 Freq: Status: Active Protocol: Document 05/25/19 15:05 LRN (Rec: 05/25/19 16:01 [facility] [id number]) Cardio Equipment Upper Body Ergometer (UBE) Duration (Minutes) 8 RPM 80 Seat Position 12 Height 3 Other Posture training. Cuing: head lifted off shoulder Therapeutic Exercises Supine Exercises Chest Press Supine Exercise Name Chest Press Reps/Minutes 30x Shoulder ER Supine Exercise Name Stretch: T-Bar shoulder ER Side right Reps/Minutes 7' Comments Extra time for achieving comfortable and proper stretch Shoulder flex Supine Exercise Name Stretch: T-Bar shoulder flex ( one arm overhead) Side right Reps/Minutes 7' Comments Manual C. tx applied during stretch to eliminate sharp pain complaints Manual Therapy Treatment Manual Techniques MWM R shoulder AB Type MWM R shldr AB: Scapular retract/depress & approx of R humeral head. Body Position Supine Reps/Duration 5' PT-OP-R Modalities Start: 05/09/19 18:53 Freq: Status: Active Protocol: Document 05/25/19 15:05 LRN (Rec: 05/25/19 16:01 N [id number]) Spinal Traction Traction Treatment Cervical Method Static Patient Position Supine Force Applied (Pounds) 10 Duration of Treatment (Minutes) 10 Traction Treatment Comment [place] Cervical Traction PT-OP-T Assessment and Plan Start: 05/09/19 18:53 Freq: Status: Active Protocol: Document 05/25/19 15:05 LRN (Rec: 05/25/19 16:01 N [id number]) Physical Therapy Assessment Goals Three Impairment Bilateral anterior hip pain rated 4/10 Short Term Goal (STG) Decrease complaints of stress to the hips with sit <-> stand . STG Duration 06/12/19 Trousseau Consultant Goal (LTG) Decrease hip pain when lifting the legs to get out of bed and upon standing to 0-1/10. LTG Duration 07/10/19 (05/25/19: Pain lessening) Two Impairment Bilateral shoulder pain rated 5/10, limiting function. Short Term Goal (STG) Improve painfree bilateral shoulder AROM per Apley Scratch Test. STG Duration 06/12/19 Long-Term Goal (LTG) Pt will be able to reach overhead to top cupboards without pain. LTG Duration 07/10/19 One Impairment Lacks appropriate Shoulder and Hip self care HEP Long-Term Goal (LTG) Pt will be independent in a self are shoulder and hip HEP. LTG Duration 07/10/19 Assessment Summary Assessment + response to C/S mechanical tx for shoulder flex, but AB is still painful. Probable C. involvement and also RC involvement from initial onset of overuse from digging. Physical Therapy Plan Frequency and Duration Frequency of Treatment 2x/Week Plan of Care Start Date 05/11/19 Plan of Care End Date 07/10/19 Next Visit Focus/Plan Next Note Type Treatment Note Next Visit Plan IFES/MH > C/S or Gentle ex warm up (Scapular stabs/RC ex' s & Biodex or UBE - low arm placement), f/b pec stretch, deep C. neck flexor & RC strengthening, end cervical traction or MH/IFES to neck, bilaterally. Ultrasound to the R anterior shoulder if needed during traction( Anterior Acromion, biceps tendon & coracoid process). Pt is limited in his insurance therapy visit; therefore start 2x/week and decrease 1x/ week once his pain is down and he is on a HEP of stretches.
--- NOTE | 2019-05-30 16:08 | PT.OTN ---
Current Diagnoses Pain in right shoulder (05/30/19) Pain in right hip (05/30/19) Pain in left hip (05/30/19) Physical Therapy Treatment Note PT-OP-A Visit Information Start: 05/09/19 18:53 Freq: Status: Active Protocol: Document 05/30/19 15:09 LRN (Rec: 05/30/19 16:06 LRN [id number]) Out-Patient Physical Therapy Visit Information Visit Information Visit Type Treatment Note Visit Start Time 15:09 Visit Stop Time 15:55 Total Visit Minutes 46 Visit Number 5 Number of BRANCH BILLING PAYROLL CLERK Visits 0 Evaluation Information Evaluation Date 05/11/19 Precautions Precautions Controlled HBP Complaints of general body ache. PT-OP-B Current Condition Start: 05/09/19 18:53 Freq: Status: Active Protocol: Document 05/11/19 11:23 LRN (Rec: 05/11/19 12:27 LRN [id number]) Current Condition History of Current Condition Onset Date 2 months ago apolinar shoulder pain Current Complaints Sharp shooting pain in the shoulders, R worse than L. History of Current Condition Pt complains of R> L shoulder pain & Apolinar hip pain. He states the shoulder pains started at same time but has escalated on R the side (pt is R handed). He states the onset of shoulder pain is based on usage. He gets sharp pain when starting to reach for things, when rolling on it at nighttime and interrupting sleep. The pt is at the top and around the shoulders but is starting to move down the R shoulder and up the neck. He thinks his hips are fine. He is being referred to therapy because he has discomfort trying to get out of bed with the soreness in the front of the thighs. Prior Treatments and Tests He has used Aspirin & Advil that has helped with his full body aches. Blood tests No X-rays done. Future Testing and Treatments Planned Associate Financial Planner for ankle and feet assessment. 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 Treatment Goals Patient/Caregiver Goals Pt goal is to be painfree in the shoulders. MD concerned hips hurt and can 't lift hips; therefore goal is to decrease hip pain when lifting the legs to get out of bed, and upon standing. Decrease knee and ankle stress when transferring sit > stand . Prior Functional Status Baseline Function- ADL's Independent Baseline Function- Mobility Independent Current Functional Impairments (Reported) Functional Limitations- ADL's Picking up a pitcher out of fridge with R arm. Reaching up to top shelf of cupboards or bending over to waste picker objects off the floor. Functional Limitations- Mobility/Gait Bilateral hip pain swinging legs off bed. Bilateral hip pain with sit <- > stand. Stress at ankles and knees with sit <-> stand. Personal Factors Other Personal Factors That May Effect Controlled High Blood Pressure Therapy/Recovery . Surgery of hands, Dupytrens correction of little finger. PT-OP-C Subjective Start: 05/09/19 18:53 Freq: Status: Active Protocol: Document 05/30/19 15:09 LRN (Rec: 05/30/19 16:06 LRN [id number]) OP-PT Subjective Patient Comments Patient Comments States he has less sharp pain with lifting the arm, pain is diffuse around the R shoulder joint. PT-OP-E Functional Tests Start: 05/09/19 18:53 Freq: Status: Active Protocol: Document 05/11/19 11:23 LRN (Rec: 05/11/19 14:02 LRN [id number]) Functional Tests Apley's Scratch Test Action 2- Left T1 Action 2- Right C7 Action 3- Left T12 Action 3- Right L3 PT-OP-G Mobility & Gait Start: 05/09/19 18:53 Freq: Status: Active Protocol: Document 05/11/19 11:23 LRN (Rec: 05/11/19 14:02 LRN [id number]) OP Mobility Evaluation Bed Mobility Rolling WNL Supine to and from Sit WNL Transfers Sit to Stand WNL Bed to Chair Transfers WNL PT-OP-H Neuro Start: 05/09/19 18:53 Freq: Status: Active Protocol: Document 05/11/19 11:23 LRN (Rec: 05/11/19 14:02 LRN [id number]) Sensation Evaluation Gross Sensation Gross Sensation WNL Comments Summary Comments Pt notes occasional decreased sensation in the R lateral deltoid and sharp shooting pain centered in the shoulder radiating up to the neck and down the lateral upper R arm. Deep Tendon Reflex & Clonus Assessment Deep Tendon Reflex Bilateral Brachioradialis Deep Tendon Reflex 1+ Diminished Bilateral Bicep Deep Tendon Reflex 0 Absent PT-OP-J Posture/Palpation/Skin Start: 05/09/19 18:53 Freq: Status: Active Protocol: Document 05/11/19 11:23 LRN (Rec: 05/11/19 14:02 LRN [id number]) Posture Evaluation Position Standing Evaluation View All positions L-Spine Posture Increased Lordosis Comments Posture Comments Varus of lower legs bilaterally. Palpation Assessment Location L shoulder Palpation Location Generally around L GHJ. Palpation Findings Tenderness Palpation Details General mild tenderness around the L shoulder joint. No tenderness of Supraspinatus or UT. R shoulder Palpation Location Biceps tendon, coracoid process Palpation Findings Tenderness Palpation Details Mild to moderate tenderness. General mild discomfort of Deltoid. No tenderness of Supraspinatus or UT. R acromion Palpation Location Anterior R Acromion Palpation Findings Tenderness Palpation Details Extremely tender at tip of anterior R acromion. PT-OP-K Range of Motion Start: 05/09/19 18:53 Freq: Status: Active Protocol: Document 05/11/19 11:23 LRN (Rec: 05/11/19 14:02 LRN [id number]) Cervical Spine Range of Motion Cervical Spine Active Degrees Testing Position Sitting Extension 38 Rotation Left 65 Rotation Right 60 Lateral Flexion Left 20 Lateral Flexion Right 35 ROM Limitations Soft Tissue Tightness Comments Flex is WNL. Shoulder Goniometric Range of Motion Shoulder Right Active Testing Position Supine Flexion 140 Abduction 83 Left Active Testing Position Supine Flexion 148 Abduction 90 Hip Goniometric Range of Motion Hip Right Passive Testing Position Supine Flexion w/Knee Flexed 90 Straight Leg Raise 70 Abduction 35 Internal Rotation 20 External Rotation 30 Left Passive Testing Position Supine Flexion w/Knee Flexed 100 Straight Leg Raise 75 Abduction 40 Internal Rotation 20 External Rotation 30 PT-OP-L Special Tests Start: 05/11/19 14:03 Freq: Status: Active Protocol: Document 05/22/19 15:10 LRN (Rec: 05/22/19 16:35 LRN [id number]) Special Tests Cervical Spine Special Tests Vertebral Artery Test Results Negative bilaterally Comments Cervical ext limited due to numbness of UE opposite artery being tested. Traction Test Results Positive Comments Relief of R shoulder pain with traction during chest press movement. PT-OP-M Strength Start: 05/09/19 18:53 Freq: Status: Active Protocol: Document 05/11/19 11:23 LRN (Rec: 05/11/19 14:02 LRN [id number]) Cervical Spine Strength Cervical Spine Manual Muscle Testing Comments WNL Shoulder Strength Shoulder Manual Muscle Testing Right Flexion 3- Fair- Extension 5 Normal Abduction (C5) 2+ Poor+ External Rotation 3- Fair- Internal Rotation 5 Normal Left Flexion 5 Normal Extension 5 Normal Abduction (C5) 3 Fair External Rotation 5 Normal Internal Rotation 5 Normal Elbow/Forearm Strength Elbow and Forearm Manual Muscle Testing Right Comments Generally 5/5 Left Comments Generally 5/5 PT-OP-Q Treatments Start: 05/09/19 18:53 Freq: Status: Active Protocol: Document 05/30/19 15:09 LRN (Rec: 05/30/19 16:06 LRN [id number]) Cardio Equipment Upper Body Ergometer (UBE) Duration (Minutes) 8 RPM 80 Seat Position 12 Height 3 Other Posture training. Cuing: head lifted off shoulder Therapeutic Exercises Standing Exercises Scapular Depression/Retraction Standing Exercise Name Scapular Depression/Retraction Side right Resistance Lev 2 & no resistance Reps/Minutes 8' Comments Pt unable to perform after extensive training. Row Standing Exercise Name Row Resistance Lev 2 T-Band Reps/Minutes 15 x 2 Shoulder ER/IR Standing Exercise Name Shoulder ER/IR strengthening Side right Resistance Lev 2 T-Band Reps/Minutes 30x ER, 15x 2 IR Comments Towels btwn elbow and body. Self-Care/Home Management Treatment Education Patient Education Home Exercise Program Activities Self-Care/Home Management Activities Issued Lev 2 T-Band with strap for in door. PT-OP-R Modalities Start: 05/09/19 18:53 Freq: Status: Active Protocol: Document 05/30/19 15:09 LRN (Rec: 05/30/19 16:06 LRN [id number]) Electric Stimulation Electric Stimulation Interferential Current (IFC) Body Location Neck Duration (Minutes) 10 Intensity 14 Target/Sweep Sweep Patient Position Supine Combined With Heat/Cold Hot Pack Hot Pack/Cold Pack Treatment Hot Pack Location Neck Patient Position Supine Treatment Duration (minutes) 10 Patient Tolerance Good Comments Bolster under legs PT-OP-T Assessment and Plan Start: 05/09/19 18:53 Freq: Status: Active Protocol: Document 05/30/19 15:09 LRN (Rec: 05/30/19 16:06 LRN [id number]) Physical Therapy Assessment Goals Three Impairment Bilateral anterior hip pain rated 4/10 Short Term Goal (STG) Decrease complaints of stress to the hips with sit <-> stand . STG Duration 06/12/19 (05/30/19: MET GOAL, pain 1/10) Fci Goal (LTG) Decrease hip pain when lifting the legs to get out of bed and upon standing to 0-1/10. LTG Duration 07/10/19 (05/30/19: Pain lessening) Two Impairment Bilateral shoulder pain rated 5/10, limiting function. Short Term Goal (STG) Improve painfree bilateral shoulder AROM per Apley Scratch Test. STG Duration 06/12/19 Fci Goal (LTG) Pt will be able to reach overhead to top cupboards without pain. LTG Duration 07/10/19 One Impairment Lacks appropriate Shoulder and Hip self care HEP Steam Finisher Goal (LTG) Pt will be independent in a self are shoulder and hip HEP. LTG Duration 07/10/19 Assessment Summary Assessment + response to IFES; therefore pt may do better to start IFES /end C. tx. Pt able to ex on UBE without sharp pain after IFES. Pt may ache more post therapy; therefore need to assess next visit. Good tolerance to shoulder strengthening with no c/o sharp pain, poor R scapular depression ability. Physical Therapy Plan Frequency and Duration Frequency of Treatment 2x/Week Plan of Care Start Date 05/11/19 Plan of Care End Date 07/10/19 Next Visit Focus/Plan Next Note Type Treatment Note Next Visit Plan Assess response to ex 1hr post therapy. IFES/MH > C/S or Gentle ex warm up (Scapular stabs/RC ex's & Biodex or UBE - low arm placement), f/b pec stretch, deep C. neck flexor & RC strengthening, end cervical traction or MH/IFES to neck, bilaterally. Ultrasound to the R anterior shoulder if needed during traction(Anterior Acromion, biceps tendon & coracoid process). Pt is limited in his insurance therapy visit; therefore start 2x/week and decrease 1x/week once his pain is down and he is on a HEP of stretches.
--- NOTE | 2019-06-08 16:10 | PT.OTN ---
Current Diagnoses Pain in right shoulder (06/08/19) Pain in right hip (06/08/19) Pain in left hip (06/08/19) Physical Therapy Treatment Note PT-OP-A Visit Information Start: 05/09/19 18:53 Freq: Status: Active Protocol: Document 06/08/19 15:08 LRN (Rec: 06/08/19 16:06 LRN [id number]) Out-Patient Physical Therapy Visit Information Visit Information Visit Type Treatment Note Visit Start Time 15:08 Visit Stop Time 15:58 Total Visit Minutes 50 Visit Number 6 Number of CAD DESIGN ENGINEER Visits 0 Evaluation Information Evaluation Date 05/11/19 Precautions Precautions Controlled HBP Complaints of general body ache. PT-OP-B Current Condition Start: 05/09/19 18:53 Freq: Status: Active Protocol: Document 05/11/19 11:23 LRN (Rec: 05/11/19 12:27 LRN [id number]) Current Condition History of Current Condition Onset Date 2 months ago antonella shoulder pain Current Complaints Sharp shooting pain in the shoulders, R worse than L. History of Current Condition Pt complains of R> L shoulder pain & Antonella hip pain. He states the shoulder pains started at same time but has escalated on R the side (pt is R handed). He states the onset of shoulder pain is based on usage. He gets sharp pain when starting to reach for things, when rolling on it at nighttime and interrupting sleep. The pt is at the top and around the shoulders but is starting to move down the R shoulder and up the neck. He thinks his hips are fine. He is being referred to therapy because he has discomfort trying to get out of bed with the soreness in the front of the thighs. Prior Treatments and Tests He has used Aspirin & Advil that has helped with his full body aches. Blood tests No X-rays done. 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 Treatment Goals Patient/Caregiver Goals Pt goal is to be painfree in the shoulders. MD concerned hips hurt and can 't lift hips; therefore goal is to decrease hip pain when lifting the legs to get out of bed, and upon standing. Decrease knee and ankle stress when transferring sit > stand . Prior Functional Status Baseline Function- ADL's Independent Baseline Function- Mobility Independent Current Functional Impairments (Reported) Functional Limitations- ADL's Picking up a pitcher out of fridge with R arm. Reaching up to top shelf of cupboards or bending over to shredder picker objects off the floor. Functional Limitations- Mobility/Gait Bilateral hip pain swinging legs off bed. Bilateral hip pain with sit <- > stand. Stress at ankles and knees with sit <-> stand. Personal Factors Other Personal Factors That May Effect Controlled High Blood Pressure Therapy/Recovery . Surgery of hands, Dupytrens correction of little finger. PT-OP-C Subjective Start: 05/09/19 18:53 Freq: Status: Active Protocol: Document 06/08/19 15:08 LRN (Rec: 06/08/19 16:06 LRN [id number]) OP-PT Subjective Patient Comments Patient Comments States his shoulder aches generally, has sharp pains when reaching wrong. Was able to put boxes away in garage overhead without sharp pain if keeping elbow in. PT-OP-E Functional Tests Start: 05/09/19 18:53 Freq: Status: Active Protocol: Document 05/11/19 11:23 LRN (Rec: 05/11/19 14:02 LRN [id number]) Functional Tests Apley's Scratch Test Action 2- Left T1 Action 2- Right C7 Action 3- Left T12 Action 3- Right L3 PT-OP-G Mobility & Gait Start: 05/09/19 18:53 Freq: Status: Active Protocol: Document 05/11/19 11:23 LRN (Rec: 05/11/19 14:02 LRN [id number]) OP Mobility Evaluation Bed Mobility Rolling WNL Supine to and from Sit WNL Transfers Sit to Stand WNL Bed to Chair Transfers WNL PT-OP-H Neuro Start: 05/09/19 18:53 Freq: Status: Active Protocol: Document 05/11/19 11:23 LRN (Rec: 05/11/19 14:02 LRN [id number]) Sensation Evaluation Gross Sensation Gross Sensation WNL Comments Summary Comments Pt notes occasional decreased sensation in the R lateral deltoid and sharp shooting pain centered in the shoulder radiating up to the neck and down the lateral upper R arm. Deep Tendon Reflex & Clonus Assessment Deep Tendon Reflex Bilateral Brachioradialis Deep Tendon Reflex 1+ Diminished Bilateral Bicep Deep Tendon Reflex 0 Absent PT-OP-J Posture/Palpation/Skin Start: 05/09/19 18:53 Freq: Status: Active Protocol: Document 05/11/19 11:23 LRN (Rec: 05/11/19 14:02 LRN [id number]) Posture Evaluation Position Standing Evaluation View All positions L-Spine Posture Increased Lordosis Comments Posture Comments Varus of lower legs bilaterally. Palpation Assessment Location L shoulder Palpation Location Generally around L GHJ. Palpation Findings Tenderness Palpation Details General mild tenderness around the L shoulder joint. No tenderness of Supraspinatus or UT. R shoulder Palpation Location Biceps tendon, coracoid process Palpation Findings Tenderness Palpation Details Mild to moderate tenderness. General mild discomfort of Deltoid. No tenderness of Supraspinatus or UT. R acromion Palpation Location Anterior R Acromion Palpation Findings Tenderness Palpation Details Extremely tender at tip of anterior R acromion. PT-OP-K Range of Motion Start: 05/09/19 18:53 Freq: Status: Active Protocol: Document 05/11/19 11:23 LRN (Rec: 05/11/19 14:02 LRN [id number]) Cervical Spine Range of Motion Cervical Spine Active Degrees Testing Position Sitting Extension 38 Rotation Left 65 Rotation Right 60 Lateral Flexion Left 20 Lateral Flexion Right 35 ROM Limitations Soft Tissue Tightness Comments Flex is WNL. Shoulder Goniometric Range of Motion Shoulder Right Active Testing Position Supine Flexion 140 Abduction 83 Left Active Testing Position Supine Flexion 148 Abduction 90 Hip Goniometric Range of Motion Hip Right Passive Testing Position Supine Flexion w/Knee Flexed 90 Straight Leg Raise 70 Abduction 35 Internal Rotation 20 External Rotation 30 Left Passive Testing Position Supine Flexion w/Knee Flexed 100 Straight Leg Raise 75 Abduction 40 Internal Rotation 20 External Rotation 30 PT-OP-L Special Tests Start: 05/11/19 14:03 Freq: Status: Active Protocol: Document 05/22/19 15:10 LRN (Rec: 05/22/19 16:35 LRN [id number]) Special Tests Cervical Spine Special Tests Vertebral Artery Test Results Negative bilaterally Comments Cervical ext limited due to numbness of UE opposite artery being tested. Traction Test Results Positive Comments Relief of R shoulder pain with traction during chest press movement. PT-OP-M Strength Start: 05/09/19 18:53 Freq: Status: Active Protocol: Document 05/11/19 11:23 LRN (Rec: 05/11/19 14:02 LRN [id number]) Cervical Spine Strength Cervical Spine Manual Muscle Testing Comments WNL Shoulder Strength Shoulder Manual Muscle Testing Right Flexion 3- Fair- Extension 5 Normal Abduction (C5) 2+ Poor+ External Rotation 3- Fair- Internal Rotation 5 Normal Left Flexion 5 Normal Extension 5 Normal Abduction (C5) 3 Fair External Rotation 5 Normal Internal Rotation 5 Normal Elbow/Forearm Strength Elbow and Forearm Manual Muscle Testing Right Comments Generally 5/5 Left Comments Generally 5/5 PT-OP-Q Treatments Start: 05/09/19 18:53 Freq: Status: Active Protocol: Document 06/08/19 15:08 LRN (Rec: 06/08/19 16:06 LRN [id number]) Cardio Equipment Upper Body Ergometer (UBE) Duration (Minutes) 9 RPM 80 Seat Position 12 Height 4 Other Posture training. Cuing: head lifted off shoulder Therapeutic Exercises Supine Exercises Shoulder flex Supine Exercise Name Overhead екатерина stretch Side right Sitting Exercises Shoulder AB w/Екатерина Sitting Exercise Name Shoulder AB w/Екатерина Side right Reps/Minutes 10 x Shoulder Flex w/Екатерина Sitting Exercise Name Shoulder Flex w/екатерина Side right Reps/Minutes 10x Standing Exercises Scapular Depression/Retraction Standing Exercise Name Scapular Depression/Retraction Side right Resistance Lev 2 & no resistance Reps/Minutes 8' Comments Pt unable to perform after extensive training. Row Standing Exercise Name Row Resistance Lev 2 T-Band Reps/Minutes 15 x 2 Shoulder ER/IR Standing Exercise Name Shoulder ER/IR strengthening Side right Resistance Lev 2 T-Band Reps/Minutes 15x 2 IR Comments Towels btwn elbow and body. Self-Care/Home Management Treatment Education Patient Education Home Exercise Program Activities Self-Care/Home Management Activities Issued HEP for Shoulder strengthening ex's (flex, AB, ER, IR, shoulder rolls, scapular retract & depression, small arm circles) PT-OP-R Modalities Start: 05/09/19 18:53 Freq: Status: Active Protocol: Document 06/08/19 15:08 LRN (Rec: 06/08/19 16:06 LRN [id number]) Spinal Traction Traction Treatment Cervical Method Static Patient Position Supine Force Applied (Pounds) 10 Duration of Treatment (Minutes) 10 Traction Treatment Comment Yusef Cervical Traction, 2nd setting. PT-OP-T Assessment and Plan Start: 05/09/19 18:53 Freq: Status: Active Protocol: Document 06/08/19 15:08 LRN (Rec: 06/08/19 16:06 LRN [id number]) Physical Therapy Assessment Goals Three Impairment Bilateral anterior hip pain rated 4/10 Short Term Goal (STG) Decrease complaints of stress to the hips with sit <-> stand . STG Duration 06/12/19 (05/30/19: MET GOAL, pain 1/10) Chcf Goal (LTG) Decrease hip pain when lifting the legs to get out of bed and upon standing to 0-1/10. LTG Duration 07/10/19 (05/30/19: Pain lessening) Two Impairment Bilateral shoulder pain rated 5/10, limiting function. Short Term Goal (STG) Improve painfree bilateral shoulder AROM per Apley Scratch Test. STG Duration 06/12/19 Security Expert Goal (LTG) Pt will be able to reach overhead to top cupboards without pain. LTG Duration 07/10/19 (06/08/19: Was able to put boxes up in garage with occasional pn) One Impairment Lacks appropriate Shoulder and Hip self care HEP Security Expert Goal (LTG) Pt will be independent in a self shoulder and hip HEP. LTG Duration 07/10/19 (06/08/19: Progressing) Assessment Summary Assessment Pt having general ache in shoulders, had taken Advil this No pain after therapy. He was able to ex on UBE without sharp pain to start. No pain with T-Band ex's. Pt slowly improving. Physical Therapy Plan Frequency and Duration Frequency of Treatment 2x/Week Plan of Care Start Date 05/11/19 Plan of Care End Date 07/10/19 Next Visit Focus/Plan Next Note Type Treatment Note Next Visit Plan Gentle ex warm up (Scapular stabs/RC ex's & Biodex or UBE - progressing raising arm placement), f/b pec stretch, deep C. neck flexor & RC/ Scapular stab strengthening, end cervical traction (or MH/ IFES to neck bilaterally). Pt is limited in his insurance therapy visit; therefore decrease 1x/week unless further therapy can be approved.
--- NOTE | 2019-08-14 14:52 | PT.OPDS ---
Current Diagnoses Pain in right shoulder (06/08/19) Pain in right hip (06/08/19) Pain in left hip (06/08/19) Visit Care Team Role Provider Type Vipin Pappas MD Attending Provider Physician Primary Care Provider Specialty: Internal Medicine Address: [address] [place] [address], [address], [address] Email: [email or web address] Visit Number Visit Number 6 Discharge Summary PT-OP-B Current Condition Start: 05/09/19 18:53 Freq: Status: Active Protocol: Document 05/11/19 11:23 LRN (Rec: 05/11/19 12:27 LRN [id number]) Current Condition History of Current Condition Onset Date 2 months ago apolinar shoulder pain Current Complaints Sharp shooting pain in the shoulders, R worse than L. History of Current Condition Pt complains of R> L shoulder pain & Apolinar hip pain. He states the shoulder pains started at same time but has escalated on R the side (pt is R handed). He states the onset of shoulder pain is based on usage. He gets sharp pain when starting to reach for things, when rolling on it at nighttime and interrupting sleep. The pt is at the top and around the shoulders but is starting to move down the R shoulder and up the neck. He thinks his hips are fine. He is being referred to therapy because he has discomfort trying to get out of bed with the soreness in the front of the thighs. Prior Treatments and Tests He has used Aspirin & Advil that has helped with his full body aches. Blood tests No X-rays done. 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 Treatment Goals Patient/Caregiver Goals Pt goal is to be painfree in the shoulders. concerned hips hurt and can 't lift hips; therefore goal is to decrease hip pain when lifting the legs to get out of bed, and upon standing. Decrease knee and ankle stress when transferring sit > stand . Prior Functional Status Baseline Function- ADL's Independent Baseline Function- Mobility Independent Current Functional Impairments (Reported) Functional Limitations- ADL's Picking up a pitcher out of fridge with R arm. Reaching up to top shelf of cupboards or bending over to clam picker objects off the floor. Functional Limitations- Mobility/Gait Bilateral hip pain swinging legs off bed. Bilateral hip pain with sit <- > stand. Stress at ankles and knees with sit <-> stand. Personal Factors Other Personal Factors That May Effect Controlled High Blood Pressure Therapy/Recovery . Surgery of hands, Dupytrens correction of little finger. PT-OP-C Subjective Start: 05/09/19 18:53 Freq: Status: Active Protocol: Document 06/08/19 15:08 LRN (Rec: 06/08/19 16:06 LRN [id number]) OP-PT Subjective Patient Comments Patient Comments States his shoulder aches generally, has sharp pains when reaching wrong. Was able to put boxes away in garage overhead without sharp pain if keeping elbow in. PT-OP-E Functional Tests Start: 05/09/19 18:53 Freq: Status: Active Protocol: Document 05/11/19 11:23 LRN (Rec: 05/11/19 14:02 LRN [id number]) Functional Tests Apley's Scratch Test Action 2- Left T1 Action 2- Right C7 Action 3- Left T12 Action 3- Right L3 PT-OP-G Mobility & Gait Start: 05/09/19 18:53 Freq: Status: Active Protocol: Document 05/11/19 11:23 LRN (Rec: 05/11/19 14:02 LRN [id number]) OP Mobility Evaluation Bed Mobility Rolling WNL Supine to and from Sit WNL Transfers Sit to Stand WNL Bed to Chair Transfers WNL PT-OP-H Neuro Start: 05/09/19 18:53 Freq: Status: Active Protocol: Document 05/11/19 11:23 LRN (Rec: 05/11/19 14:02 LRN [id number]) Sensation Evaluation Gross Sensation Gross Sensation WNL Comments Summary Comments Pt notes occasional decreased sensation in the R lateral deltoid and sharp shooting pain centered in the shoulder radiating up to the neck and down the lateral upper R arm. Deep Tendon Reflex & Clonus Assessment Deep Tendon Reflex Bilateral Brachioradialis Deep Tendon Reflex 1+ Diminished Bilateral Bicep Deep Tendon Reflex 0 Absent PT-OP-J Posture/Palpation/Skin Start: 05/09/19 18:53 Freq: Status: Active Protocol: Document 05/11/19 11:23 LRN (Rec: 05/11/19 14:02 LRN [id number]) Posture Evaluation Position Standing Evaluation View All positions L-Spine Posture Increased Lordosis Comments Posture Comments Varus of lower legs bilaterally. Palpation Assessment Location L shoulder Palpation Location Generally around L GHJ. Palpation Findings Tenderness Palpation Details General mild tenderness around the L shoulder joint. No tenderness of Supraspinatus or UT. R shoulder Palpation Location Biceps tendon, coracoid process Palpation Findings Tenderness Palpation Details Mild to moderate tenderness. General mild discomfort of Deltoid. No tenderness of Supraspinatus or UT. R acromion Palpation Location Anterior R Acromion Palpation Findings Tenderness Palpation Details Extremely tender at tip of anterior R acromion. PT-OP-K Range of Motion Start: 05/09/19 18:53 Freq: Status: Active Protocol: Document 05/11/19 11:23 LRN (Rec: 05/11/19 14:02 LRN [id number]) Cervical Spine Range of Motion Cervical Spine Active Degrees Testing Position Sitting Extension 38 Rotation Left 65 Rotation Right 60 Lateral Flexion Left 20 Lateral Flexion Right 35 ROM Limitations Soft Tissue Tightness Comments Flex is WNL. Shoulder Goniometric Range of Motion Shoulder Right Active Testing Position Supine Flexion 140 Abduction 83 Left Active Testing Position Supine Flexion 148 Abduction 90 Hip Goniometric Range of Motion Hip Right Passive Testing Position Supine Flexion w/Knee Flexed 90 Straight Leg Raise 70 Abduction 35 Internal Rotation 20 External Rotation 30 Left Passive Testing Position Supine Flexion w/Knee Flexed 100 Straight Leg Raise 75 Abduction 40 Internal Rotation 20 External Rotation 30 PT-OP-L Special Tests Start: 05/11/19 14:03 Freq: Status: Active Protocol: Document 05/22/19 15:10 LRN (Rec: 05/22/19 16:35 LRN [id number]) Special Tests Cervical Spine Special Tests Vertebral Artery Test Results Negative bilaterally Comments Cervical ext limited due to numbness of UE opposite artery being tested. Traction Test Results Positive Comments Relief of R shoulder pain with traction during chest press movement. PT-OP-M Strength Start: 05/09/19 18:53 Freq: Status: Active Protocol: Document 05/11/19 11:23 LRN (Rec: 05/11/19 14:02 LRN [id number]) Cervical Spine Strength Cervical Spine Manual Muscle Testing Comments WNL Shoulder Strength Shoulder Manual Muscle Testing Right Flexion 3- Fair- Extension 5 Normal Abduction (C5) 2+ Poor+ External Rotation 3- Fair- Internal Rotation 5 Normal Left Flexion 5 Normal Extension 5 Normal Abduction (C5) 3 Fair External Rotation 5 Normal Internal Rotation 5 Normal Elbow/Forearm Strength Elbow and Forearm Manual Muscle Testing Right Comments Generally 5/5 Left Comments Generally 5/5 PT-OP-T Assessment and Plan Start: 05/09/19 18:53 Freq: Status: Active Protocol: Document 08/14/19 14:31 LRN (Rec: 08/14/19 14:51 LRN [id number]) Physical Therapy Assessment Goals Three Impairment Bilateral anterior hip pain rated 4/10 Short Term Goal (STG) Decrease complaints of stress to the hips with sit <-> stand . (08/14/19: Pt unavailable for final assessment due to Covid- 19 restrictions). STG Duration 06/12/19 (05/30/19: MET GOAL, pain 1/10) Skip Miner Goal (LTG) Decrease hip pain when lifting the legs to get out of bed and upon standing to 0-1/10. (08/14/19: Pt unavailable for final assessment due to Covid- 19 restrictions). LTG Duration 07/10/19 (05/30/19: Pain lessening) Two Impairment Bilateral shoulder pain rated 5/10, limiting function. Short Term Goal (STG) Improve painfree bilateral shoulder AROM per Apley Scratch Test. (08/14/19: Pt unavailable for final assessment due to Covid- 19 restrictions). STG Duration 06/12/19 Long-Term Goal (LTG) Pt will be able to reach overhead to top cupboards without pain. (08/14/19: Pt unavailable for final assessment due to Covid- 19 restrictions). LTG Duration 07/10/19 (06/08/19: Was able to put boxes up in garage with occasional pn) One Impairment Lacks appropriate Shoulder and Hip self care HEP Skip Miner Goal (LTG) Pt will be independent in a self shoulder and hip HEP. (08/14/19: Pt unavailable for final assessment due to Covid- 19 restrictions). LTG Duration 07/10/19 (06/08/19: Progressing) Assessment Summary Assessment Pt was last seen 9 weeks ago on 06/08/19. Physical therapy was interrupted due to Covid- 19 measures. The pt was not available for further therapy and attempts at reaching him by phone was unsuccessful. A new referral will be needed for the pt to return to physical therapy. Physical Therapy Plan Discharge Physical Therapy Discharge Reasons No Longer Attending PT Discharge Comments The pt is being discharged from therapy at this time due to Covid-19 outbreak. The pt will need a new referral to return to therapy.
== END 2019-08-24 09:56 ==
LOC: PHYS 15:00
PROVIDERS: PCP Student in an Organized Health Care Education/Training Program; Visit Provider Student in an Organized Health Care Education/Training Program
DX: M25.511 Pain in right shoulder (principal); M25.551 Pain in right hip; M25.552 Pain in left hip
CPT/HCPCS: 97012; 97014; 97035; 97110; 97162; G0283

== ENCOUNTER → 2020-08-20 15:20 | Outpatient (ROUT) | payer OTHER, MEDICAID, SELFPAY ==
[2020-08-20 15:37] LABS: Add Manual Diff / Slide Review NO; Basophils Absolute Auto 100 /uL (0-100); Basophils Percent Auto 1.2 % (0-2); Eosinophils Absolute Auto 200 /uL (0-450); Eosinophils Percent Auto 3.1 % (2-4); Hemoglobin 14.3 g/dL (13.5-17.5); Lymphocytes Absolute Auto 3100 /uL (1100-4500); Lymphocytes Percent Auto 47.1 % (25-40); Mean Corpuscular HGB Conc 34.1 % (30-36); Mean Corpuscular Hemoglobin 33.8 PG (26-34); Mean Corpuscular Volume 99.3 fL (80-100); Monocytes Absolute Auto 800 /uL (0-900); Monocytes Percent Auto 11.6 % (3-14); Neutrophils Absolute Auto 2400 /uL (1500-7000); Platelet Count 201 X10^3/uL (150-400); Red Blood Cell Count 4.23 X10^6/uL (4.5-5.9); Red Cell Distribution Width 13.2 % (11.6-14.8); White Blood Cell Count 6.6 X10^3/uL (4.5-11.0)
[2020-08-20 15:48] LABS: Alanine Aminotransferase 76 IU/L (<50); Albumin 4.6 g/dL (3.5-5.0); Albumin Globulin Ratio 1.3 (1.0-2.8); Alkaline Phosphatase 77 U/L (38-126); Aspartate Aminotransferase 89 IU/L (17-59); BUN Creatinine Ratio 12.8 (6-22); Bilirubin Total 0.7 mg/dL (0.2-1.3); Blood Urea Nitrogen 10 mg/dL (9-20); Carbon Dioxide 27 mmol/L (22-32); Chloride 104 mmol/L (98-107); Cholesterol 258 mg/dL (140-199); Estimated Glomerular Filt Rate > 60.0 mL/min (>60); Globulin 3.6 g/dL (1.7-4.1); Glucose 97 mg/dL (70-100); HDL Cholesterol 73 mg/dL (40-60); HEMOLYSIS < 15 (0-50); LDL Cholesterol Calculated 137 mg/dL (<100); Potassium 4.4 mmol/L (3.4-5.1); Sodium 142 mmol/L (137-145); Total Protein 8.2 g/dL (6.3-8.2); Triglycerides 238 mg/dL (35-150)
[2020-08-20 16:17] LABS: Prostate Specific Antigen Scrn 1.06 ng/mL (0.1-4.0)
[2020-08-20 17:41] LABS: TSH w/ Reflex to FT4 1.74 uIU/mL (0.47-4.68)
== END ==
PROVIDERS: PCP Student in an Organized Health Care Education/Training Program; Visit Provider Internal Medicine
DX: I10 Essential (primary) hypertension (principal); E78.2 Mixed hyperlipidemia; Z12.5 Encounter for screening for malignant neoplasm of prostate
CPT/HCPCS: 80053; 80061; 84443; 85025; G0103